=== PATIENT | male | born 1990 | race Two or more races ===

== ENCOUNTER 2018-09-05 13:58 | Emergency (ER) | payer OTHER ==
[~2018-09-05] VITALS: Ht 172.7 cm; Wt 67.6 kg
== END 2018-09-05 19:38 | disposition home or self-care (01) ==
LOC: ER 13:58
DX: R53.81 Other malaise (principal)

== ENCOUNTER 2022-04-09 12:45 | Emergency (ER) | payer OTHER ==
[~2022-04-09] VITALS: Ht 175.3 cm; Wt 65.8 kg
== END 2022-04-09 17:06 | disposition home or self-care (01) ==
LOC: ER 12:45
DX: J06.9 Acute upper respiratory infection, unspecified (principal); Z20.822 Contact with and (suspected) exposure to COVID-19; R07.9 Chest pain, unspecified; R09.81 Nasal congestion

== ENCOUNTER 2022-10-21 13:07 | Emergency (ER) | payer OTHER ==
[~2022-10-21] VITALS: Ht 175.3 cm; Wt 67.6 kg
== END 2022-10-21 18:19 | disposition home or self-care (01) ==
LOC: ER 13:07
DX: B34.9 Viral infection, unspecified (principal); Z91.013 Allergy to seafood; Z20.822 Contact with and (suspected) exposure to COVID-19

== ENCOUNTER 2023-08-07 22:53 | Emergency (ER) | payer OTHER ==
[~2023-08-07] VITALS: Ht 175.3 cm; Wt 67.6 kg
[2023-08-08] MEDS ORDERED: KETOROLAC TROMETHAMINE 10 MG TABLET PO STA (01:02)
[2023-08-08] MEDS ORDERED: CEFTRIAXONE SODIUM 1,000 MG VIAL IM STA (01:02)
[2023-08-08] MEDS ORDERED: DOLOGESIC-DF 51 EACH PO (01:06)
[2023-08-08] MEDS ORDERED: AMOX-CLAV 875-1 EACH PO (01:06)
[2023-08-08] MEDS ORDERED: NASAL MIST126 ML NASAL (01:07)
[2023-08-08] MEDS ORDERED: ORASEP SPRAY30 ML PO ×2 (01:07→01:08)
== END 2023-08-08 01:18 | disposition home or self-care (01) ==
LOC: ER 22:53
DX: J02.8 Acute pharyngitis due to other specified organisms (principal); Z91.013 Allergy to seafood; H66.90 Otitis media, unspecified, unspecified ear

== ENCOUNTER 2024-05-06 03:46 | Emergency (ER) | payer OTHER ==
[~2024-05-06] VITALS: Ht 175.3 cm; Wt 86.2 kg
[~2024-05-06 03:46] MED LIST: AMOX-CLAV 875-1 EACH PO; DOLOGESIC-DF 51 EACH PO; NASAL MIST126 ML NASAL; ORASEP SPRAY30 ML PO
[2024-05-06] MEDS ORDERED: DEXAMETHASONE SODIUM PHOSPHATE 4 MG/ML VIAL IM STA (08:02)
[2024-05-06] MEDS ORDERED: CEFTRIAXONE SODIUM 1,000 MG VIAL IM SCH (08:15)
== END 2024-05-06 08:32 | disposition home or self-care (01) ==
LOC: ER 03:49
DX: J03.80 Acute tonsillitis due to other specified organisms (principal); B96.89 Other specified bacterial agents as the cause of diseases classified elsewhere; Z91.013 Allergy to seafood